=== PATIENT | female | born 1965 | race Caucasian/White ===

== ENCOUNTER 2020-10-22 14:35 | Observation (INO) ==
[2020-10-22] MEDS ORDERED: ACETAMINOPHEN 325 MG TABLET PO PRN (15:46)
[2020-10-22] MEDS ORDERED: ONDANSETRON 4 MG/2 ML VIAL IV PRN (15:46)
[2020-10-22] MEDS: MORPHINE 4 MG/1 ML VIAL IV PRN (17:00)
[2020-10-22] MEDS: SODIUM CHLORIDE 0.45% 1,000 ML IV SCH (17:00)
[2020-10-23] MEDS: SODIUM CHLORIDE 0.45% 1,000 ML IV SCH ×4 (03:11→21:00)
[2020-10-23] MEDS ORDERED: LIDOCAINE 1%/EPI INJ 20 ML VIAL ONE ×2 (08:16→09:03)
[2020-10-23] MEDS ORDERED: TISSUE ADHESIVE 1 EACH APPLICATOR TOP ONE (08:16)
[2020-10-23] MEDS ORDERED: BUPIVACAINE MPF 0.25% 30 ML VIAL ONE (08:16)
[2020-10-23] MEDS ORDERED: BUPIVACAINE 0.5% 50 ML VIAL ONE (09:03)
[2020-10-23] MEDS ORDERED: ROCURONIUM 50 MG/5 ML VIAL IV ONE (09:41)
[2020-10-23] MEDS ORDERED: propofoL 200 MG/20 ML VIAL IV ONE (09:41)
[2020-10-23] MEDS ORDERED: LIDOCAINE 2% 5 ML VIAL ONE (09:41)
[2020-10-23] MEDS ORDERED: fentaNYL 100 MCG/2 ML VIAL ONE (09:42)
[2020-10-23] MEDS ORDERED: MIDAZOLAM 2 MG/2 ML VIAL ONE (09:42)
[2020-10-23] MEDS ORDERED: SUCCINYLCHOLINE 200 MG/10 ML VIAL ONE (09:47)
[2020-10-23] MEDS ORDERED: ePHEDrine 50 MG/ML VIAL ONE (09:59)
[2020-10-23] MEDS ORDERED: ceFAZolin 1,000 MG VIAL ONE (10:00)
[2020-10-23] MEDS ORDERED: ONDANSETRON 4 MG/2 ML VIAL ONE (10:17)
[2020-10-23] MEDS ORDERED: DEXAMETHASONE 4 MG/1 ML VIAL ONE (10:17)
[2020-10-23] MEDS ORDERED: GLYCOPYRROLATE 0.4 MG/2 ML VIAL ONE (10:32)
[2020-10-23] MEDS ORDERED: NEOSTIGMINE 10 MG/10 ML VIAL ONE (10:32)
[2020-10-23] MEDS ORDERED: ONDANSETRON 4 MG/2 ML VIAL IV PRN (11:16)
[2020-10-23] MEDS ORDERED: diphenhydrAMINE 50 MG/1 ML VIAL IV PRN (11:16)
[2020-10-23] MEDS ORDERED: PROMETHAZINE INJ 25 MG in SODIUM CHLORIDE 0.9% 50 ML IV PRN (11:16)
[2020-10-23] MEDS ORDERED: MEPERIDINE 25 MG/1 ML VIAL IV PRN (11:16)
[2020-10-23] MEDS ORDERED: NICOTINE 14 MG/24 HR PATCH TRANSDERM PRN (13:28)
[2020-10-23] MEDS: ENOXAPARIN 40 MG/0.4 ML SYRINGE SUBCUT SCH (13:44)
[2020-10-23] MEDS: cefOXitin 1,000 MG in SODIUM CHLORIDE 0.9% 100 ML IV SCH ×2 (13:44→17:38)
[2020-10-23] MEDS: MORPHINE 4 MG/1 ML VIAL IV PRN (20:32)
[2020-10-23] MEDS: CHOLECALCIFEROL 5,000 UNIT TABLET PO SCH (20:33)
[2020-10-24] MEDS: cefOXitin 1,000 MG in SODIUM CHLORIDE 0.9% 100 ML IV SCH ×2 (00:04→06:14)
[2020-10-24] MEDS: CHOLECALCIFEROL 5,000 UNIT TABLET PO SCH (08:24)
[2020-10-24] MEDS: ENOXAPARIN 40 MG/0.4 ML SYRINGE SUBCUT SCH (08:24)
[2020-10-24] MEDS: MORPHINE 4 MG/1 ML VIAL IV PRN (08:28)
[2020-10-24] MEDS: SODIUM CHLORIDE 0.45% 1,000 ML IV SCH (08:38)
[2020-10-24] MEDS ORDERED: LISINOPRIL/HCTZ 20-12.5 MG TABLET PO SCH (09:00)
[2020-10-24 11:16] VITALS: BP 168/79
== END 2020-10-24 12:49 | disposition home or self-care (01) ==
LOC: N.ED 14:35 → N.EDINP 14:35 → N.3E 16:32
PROVIDERS: ADMIT Surgery; ATTEND Surgery
PROC: LAPCHOL (2020-10-23 09:48)